=== PATIENT | male | born 1970 | race Caucasian/White ===

== ENCOUNTER → 2017-02-25 | Outpatient (CLI) | payer BC, OTHER ==
[~2017-02-25] VITALS: Ht 180.3 cm; Wt 68.0 kg
[~2017-02-25] MED LIST: BYSTOLIC 5 MG5 M1 PO; CIALIS2.5 MG PO; LISINOPRIL10 MG PO; LIVALO4 MG PO; RISPERDAL M-TAB2 MG PO; WELLBUTRIN SR150 MG PO; XANAX 0.5 MG0.5 MG PO
--- NOTE | ~2017-02-25 | EKG ---
[place] [address] [facility] [address] ELECTROCARDIOGRAM REPORT Name: ASAF RANDHAWAARD Room #: [facility]an [facility] HospitalChulaAmy#: [id number] Admission: 02/25/17 Attend Phys: Cruz Martines MD, Discharge: Date of : 72 Report #: [id number] THIS REPORT FOR: //name// [facility] Test Date: 2017-02-25 Test Time: 07:57:15 Pat Name: CHAD RANDHAWA Department: Room: Gender: M President Celebrity Acquistion: : 1970 Requested By: Cruz Martines Order Number: [id number] MD: Oc Barksdale Measurements Intervals [place] Rate: 56 P: 61 W[place]: 160 QRS: 84 QRSD: 116 T: 46 QT: 435 QTc: 420 Interpretive Statements Sinus rhythm Left ventricular hypertrophy ST elev, probable normal early repol pattern No previous ECG available for comparison Electronically Signed On 02-25-2017 9:58:50 CDT by Oc Barksdale [email or web address] <ELECTRONICALLY SIGNED> By: Oc Barksdale MD, [facility] 02/25/17 [phone] Oc Barksdale MD, FACC /EPI
--- NOTE | ~2017-02-25 | CATHLAB ---
[facility] [place] [address] INVASIVE PROCEDURE REPORT Name: EDISASAFCHAD Room #: ROYAL AGUDELO Sanjana#: [id number] Admission: 02/25/17 Attend Phys: Cruz Martines, Discharge: Date of : 72 Date of Service: 02/26/17 0940 Report #: [id number] THIS REPORT FOR: //name// APPROVED REPORT Patient Details Patient Status: Out-Patient Room #: The patient is a 46 year-old male Event Personnel Cruz Martines Tool Inspector, Mike Sams RN, Kayy Shi Sandifer, David Monitor Procedures Performed Left Heart Cath w/or w/o Coronaries [id number] [facility] , Left Heart CatheterizationAortogram Abdominal Peripheral Angio [id number] Procedure Narrative The Right Groin^ was infiltrated with 1% Lidocaine subcutaneous anesthesia. A PINNACLE 6FR Sheath #[id number] sheath was inserted into the RFA^. Coronary angiography was performed using coronary diagnostic catheters. The right coronary system was accessed and visualized with a JR4 catheter. The left coronary system was accessed and visualized with a JL4 catheter. The left ventricle was accessed and visualized with a PITAIL catheter. Left ventriculogram was performed in 30 degree projection. Hemostasis was obtained with manual pressure following sheath removal without any complications. The patient tolerated the procedure well and there were no complications associated with the procedure. There was no hematoma. Intraoperative Conscious Sedation Sedation start time: 9:00 Case end Time: 9:14 Fentanyl mcg Versed mg Fluoro Time: 1.00 minutes Contrast Type and Amount: Omnipaque 130 ml Hemodynamics The aortic pressure is 116/63 mmHg with a mean of 82 mmHg. The left ventricular pressure is 125/6 mmHg with a mean of mmHg. The left ventricular end diastolic pressure is 21 mmHg. Conclusion [facility] [place] [address] [place] [address] INVASIVE PROCEDURE REPORT Name: CHAD RANDHAWA Room #: ROYAL Allan#: [id number] Admission: 02/25/17 Attend Phys: Cruz Martines, Discharge: Date of : 72 Date of Service: 02/26/17 0940 Report #: [id number] #1 LV function at the lower limits of normal EF 50% range #2 abdominal aortogram revealing no symptomatic and aneurysm mild plaquing renal arteries are patent. #3 left main free of disease giving rise to LAD and circumflex #4 LAD with mild irregularities extends around the apex. #5 circumflex marginal mild irregularities moderate-sized marginal branch #6 dominant right coronary artery with minimal plaquing PDA and SUSANA well preserved Recommendations and plan no indication for intervention.MY NX closure device was utilized without complication. No lifting for 48 hours no line tub Jacuzzi or Max for a week. Very mild LV dysfunction will add 10 mg of lisinopril. Follow-up 6 months. Smoking cessation strongly recommended. <ELECTRONICALLY SIGNED> By: Cruz Martines MD, FACC 02/26/17939 9 9 Cruz Martines MD, FACC /INF
[2017-02-25 07:18] VITALS: BP 112/72
== END | disposition home or self-care (01) ==
LOC: CATH 06:54
DX: I25.10 Atherosclerotic heart disease of native coronary artery without angina pectoris (principal); E78.5 Hyperlipidemia, unspecified; F32.89 Other specified depressive episodes; F41.8 Other specified anxiety disorders; F17.210 Nicotine dependence, cigarettes, uncomplicated; Z98.890 Other specified postprocedural states; Z79.899 Other long term (current) drug therapy; Z82.49 Family history of ischemic heart disease and other diseases of the circulatory system; Z86.73 Personal history of transient ischemic attack (TIA), and cerebral infarction without residual deficits

== ENCOUNTER → 2019-06-26 | Outpatient (CLI) | payer OTHER | LOC: RAD 14:51 | DX: Z13.6 Encounter for screening for cardiovascular disorders (principal); E78.00 Pure hypercholesterolemia, unspecified; I25.10 Atherosclerotic heart disease of native coronary artery without angina pectoris ==

== ENCOUNTER → 2020-05-09 | Outpatient (CLI) | payer BC, OTHER | LOC: SJCVCIMAG 10:59 | PROVIDERS: ATTEND Internal Medicine Cardiovascular Disease | DX: I25.10 Atherosclerotic heart disease of native coronary artery without angina pectoris (principal); I10 Essential (primary) hypertension; E78.5 Hyperlipidemia, unspecified; Z98.890 Other specified postprocedural states ==